=== PATIENT | female | born 1950 | race Caucasian/White ===

== ENCOUNTER → 2017-01-13 | Day surgery (SDC) | payer MEDICARE | END | disposition home or self-care (01) | LOC: FAS 09:15 | DX: Z45.2 Encounter for adjustment and management of vascular access device (principal); C18.9 Malignant neoplasm of colon, unspecified; Z90.49 Acquired absence of other specified parts of digestive tract; I10 Essential (primary) hypertension; M79.7 Fibromyalgia; M19.90 Unspecified osteoarthritis, unspecified site; G47.30 Sleep apnea, unspecified; Z87.891 Personal history of nicotine dependence; Z90.710 Acquired absence of both cervix and uterus; Z91.048 Other nonmedicinal substance allergy status | CPT/HCPCS: J0690; J3010 ==

== ENCOUNTER 2020-07-31 18:33 | Day surgery (SDCO) | payer MEDICARE ==
[~2020-07-31 18:33] MED LIST: CELEBREX 200MG200 MG PO; COLACE100 MG PO; GLUCOSAMINE CH1 EAC4 PO; VICODIN 10/3251 EACH PO; VITAMIN D35000 UNIT PO
[2020-07-31 21:50] LABS: BILIRUBIN NEGATIVE (NEGATIVE); BLOOD 2+ Ery/uL (NEGATIVE); CLARITY CLEAR (CLEAR); COLOR YELLOW (YELLOW); GLUCOSE (U) NORMAL (NORMAL); LEUKOCYTES NEGATIVE Leu/uL (NEGATIVE); NITRITE POSITIVE (NEGATIVE); PROTEIN NEGATIVE (NEGATIVE); UROBILINOGEN 0.2 mg/dL (0.2-1.0)
[2020-07-31 22:01] LABS: BACTERIA 4+; BASOPHIL 0.8 % (0-2); EOSINOPHIL 0.3 % (0-7); HCT 47.9 % (37.0-47.0); HGB 15.2 g/dl (12.5-16.0); LYMPHOCYTE 23.4 % (15-48); MCH 34.5 pg (25.0-31.0); MCHC 31.7 g/dL (32.0-36.0); MCV 108.6 fL (78.0-100.0); MONOCYTE 8.9 % (0-12); MPV 10.3 fL (6.0-9.5); NEUTROPHIL 62.7 % (41-80); NRBC 0; PLT 231 K/uL (150-400); RBC 4.41 M/uL (4.20-5.40); RDW 15.8 % (11.5-14.0); WBC 5.9 K/uL (4.0-10.5)
[2020-07-31 22:29] LABS: ALBUMIN 3.1 g/dL (3.4-5.0); BILIRUBIN - TOTAL 0.7 mg/dL (0.2-1.0); BUN/CREAT RATIO (CALC) 9.9 RATIO; CREATININE 0.81 mg/dL (0.51-0.95); GLOBULIN (CALCULATION) 3.9 g/dL; POTASSIUM 3.3 mmol/L (3.5-5.1)
[2020-07-31 22:41] LABS: LACTIC ACID 1.5 mmol/L (0.4-1.9)
[2020-07-31 22:41] LABS: CORONAVIRUS 2019 SARS-COV-2 NEGATIVE (NEGATIVE); INFLUENZA A NAA NEGATIVE (NEGATIVE)
[2020-08-01 06:58] LABS: HCT 46.5 % (37.0-47.0); HGB 14.6 g/dl (12.5-16.0); MCH 33.8 pg (25.0-31.0); MCHC 31.4 g/dL (32.0-36.0); MCV 107.6 fL (78.0-100.0); MPV 9.9 fL (6.0-9.5); RBC 4.32 M/uL (4.20-5.40); RDW 15.6 % (11.5-14.0); WBC 5.8 K/uL (4.0-10.5)
[2020-08-01 07:50] LABS: ALBUMIN 2.9 g/dL (3.4-5.0); BILIRUBIN - TOTAL 0.7 mg/dL (0.2-1.0); BUN/CREAT RATIO (CALC) 9.9 RATIO; CREATININE 0.81 mg/dL (0.51-0.95); FOLIC ACID (SERUM) 4.6 ng/mL (8.6-58.9); GLOBULIN (CALCULATION) 3.6 g/dL; POTASSIUM 3.3 mmol/L (3.5-5.1); TOTAL PROTEIN 6.5 g/dL (6.4-8.2)
[2020-08-02 05:56] LABS: BASOPHIL 0.6 % (0-2); EOSINOPHIL 0.4 % (0-7); HCT 47.7 % (37.0-47.0); LYMPHOCYTE 35.2 % (15-48); MCH 33.9 pg (25.0-31.0); MCHC 31.4 g/dL (32.0-36.0); MCV 107.9 fL (78.0-100.0); MONOCYTE 11.9 % (0-12); MPV 10.1 fL (6.0-9.5); NEUTROPHIL 49.7 % (41-80); NRBC 0; PLT 203 K/uL (150-400); RBC 4.42 M/uL (4.20-5.40); RDW 15.8 % (11.5-14.0); WBC 5.1 K/uL (4.0-10.5)
[2020-08-02 06:21] LABS: CREATININE 0.89 mg/dL (0.51-0.95); MAGNESIUM 1.9 mg/dL (1.8-2.4); POTASSIUM 3.6 mmol/L (3.5-5.1)
[2020-08-02] MEDS ORDERED: FOLIC ACID1 MG PO (11:15)
[2020-08-02] MEDS ORDERED: KLOR-CON M 1010 MEQ PO (11:15)
[2020-08-02] MEDS ORDERED: LASIX40 MG PO (11:15)
[2020-08-02] MEDS ORDERED: LEVAQUIN500 MG PO (11:16)
--- NOTE | 2020-08-02 12:28 | NUR ---
08/02/20 Ms. Marroquin lives at home. Her spouse is in the home the majority of the time. She has a rw, in1, s.chair, and w/c. A neighbor assist with housekeeping once a month. Ms. Marroquin reports to be independent with homemaking. - A referral was made to [facility] for 02. Patient was advised to call [facility] upon arrival to home for delivery of the concentrator. A referral was made to A per patient choice; affliation explained. - Report given to MS SEHILA Gutierrez.
== END 2020-08-02 15:29 | disposition home health service (06) ==
LOC: FER 18:33 → FMS 08-01 03:44
PROVIDERS: Emergency Medicine; Nurse Practitioner; ADMIT Internal Medicine
DX: I11.0 Hypertensive heart disease with heart failure (principal); I50.9 Heart failure, unspecified; J96.01 Acute respiratory failure with hypoxia; J96.02 Acute respiratory failure with hypercapnia; K52.9 Noninfective gastroenteritis and colitis, unspecified; E87.6 Hypokalemia; E53.8 Deficiency of other specified B group vitamins; N30.00 Acute cystitis without hematuria; B96.89 Other specified bacterial agents as the cause of diseases classified elsewhere; J90 Pleural effusion, not elsewhere classified; G89.29 Other chronic pain; M79.605 Pain in left leg; M79.604 Pain in right leg; K29.00 Acute gastritis without bleeding; R79.89 Other specified abnormal findings of blood chemistry; Z20.822 Contact with and (suspected) exposure to COVID-19; I42.9 Cardiomyopathy, unspecified; M19.90 Unspecified osteoarthritis, unspecified site; M79.7 Fibromyalgia; F41.9 Anxiety disorder, unspecified; F32.9 Major depressive disorder, single episode, unspecified; Z23 Encounter for immunization; Z85.038 Personal history of other malignant neoplasm of large intestine; Z87.891 Personal history of nicotine dependence; Z79.899 Other long term (current) drug therapy; Z91.048 Other nonmedicinal substance allergy status; Z90.49 Acquired absence of other specified parts of digestive tract
CPT/HCPCS: 36415; 36600; 71045; 71275; 80048; 80053; 81001; 82607; 82728; 82746; 82803; 83540; 83605; 83690; 83735; 83880; 84466; 84484; 85025; 87040; 87076; 87088; 87186; 90662; 94760; G0008; G0378; J0696; J1940; J2405; J2916; J7040; Q9967; U0002

== ENCOUNTER → 2021-12-20 | Day surgery (SDC) | payer MEDICARE ==
[~2021-12-20] VITALS: Ht 149.9 cm; Wt 113.4 kg
[~2021-12-20] MED LIST changes: +FOLIC ACID1 MG PO; +KLOR-CON M 1010 MEQ PO; +LASIX40 MG PO; +LEVAQUIN500 MG PO; +LEXAPRO 10MG TA10 MG PO; +PEPCID AC20 MG PO; +STOOL SOFTNER PO
== END | disposition home or self-care (01) ==
LOC: FAS 09:10
DX: K31.9 Disease of stomach and duodenum, unspecified (principal); D12.2 Benign neoplasm of ascending colon; D12.3 Benign neoplasm of transverse colon; D12.6 Benign neoplasm of colon, unspecified; K44.9 Diaphragmatic hernia without obstruction or gangrene; K21.9 Gastro-esophageal reflux disease without esophagitis; K43.9 Ventral hernia without obstruction or gangrene; K91.30 Postprocedural intestinal obstruction, unspecified as to partial versus complete; G89.29 Other chronic pain; I10 Essential (primary) hypertension; Z85.038 Personal history of other malignant neoplasm of large intestine; Z90.49 Acquired absence of other specified parts of digestive tract; Z98.0 Intestinal bypass and anastomosis status; Z92.21 Personal history of antineoplastic chemotherapy; Z87.891 Personal history of nicotine dependence; Z20.822 Contact with and (suspected) exposure to COVID-19
CPT/HCPCS: J2250; J2704; J7120; U0002